=== PATIENT | male | born 1980 | race African-American/Black ===

== ENCOUNTER 2018-10-25 14:21 | Emergency (ER) | payer OTHER ==
[~2018-10-25] VITALS: Ht 177.8 cm; Wt 85.7 kg
[2018-10-25 17:34] VITALS: BP 147/64
[2018-10-25] MEDS ORDERED: ELIMITE60 GM TOP (17:37)
[2018-10-25] MEDS ORDERED: ZYRTEC10 MG PO (17:37)
[2018-10-25] MEDS ORDERED: PREDNISONE 20 M20 MG PO (17:37)
== END 2018-10-25 17:34 | disposition home or self-care (01) ==
LOC: ER 14:21
DX: S70.361A Insect bite (nonvenomous), right thigh, initial encounter (principal); R21 Rash and other nonspecific skin eruption; F17.210 Nicotine dependence, cigarettes, uncomplicated; W57.XXXA Bitten or stung by nonvenomous insect and other nonvenomous arthropods, initial encounter; Y92.89 Other specified places as the place of occurrence of the external cause; Y93.89 Activity, other specified; Y99.8 Other external cause status